=== PATIENT | female | born 1975 | race Caucasian/White ===

== ENCOUNTER 2019-08-09 03:55 | Emergency (ER) | payer MEDICAID ==
--- NOTE | 2019-08-09 04:11 | EDM.PDOC ---
ED HPI GENERAL MEDICAL PROBLEM - General Chief Complaint: General Stated Complaint: Laceration Time Seen by Provider: 08/09/19 04:00 Source of Information: Reports: Patient History Limitations: Reports: Intoxication - History of Present Illness INITIAL COMMENTS - FREE TEXT/NARRATIVE: She is brought to the emergency department via ambulance. She appears intoxicated and reports that she had 4 beers earlier in the evening. She reports that she tripped and fell down her steps at home earlier this morning. She is complaining of pain in the left shoulder and left wrist. She denies any loss of consciousness. No headache. She does complain of dizziness but states that has been present for about 3 weeks. No pain in the neck or back. Pain in the shoulder is more on the superior aspect. She is comfortable at rest but has pain with any attempted movement. Also has pain in the left wrist with any movement. No pain in the elbow. No pain in the right upper extremity. No pain in the hips or lower extremities. She denies chest pain or tightness. No abdominal pain. Positive nausea but this has been present for 3 weeks and is unchanged. No vomiting. No visual problems. She does have a laceration over the left eye. No numbness or tingling in the fingers or toes. - Related Data Allergies Allergy/AdvReac Type Severity Reaction Status Date / Time No Known Allergies Allergy Verified 08/09/19 03:57 Home Meds: Home Meds diphenhydrAMINE [Benadryl] 25 mg PO BID PRN 08/09/19 [History] ED ROS GENERAL - Review of Systems Review Of Systems: See Below Constitutional: Denies: Fever, Chills, Weakness, Diaphoresis HEENT: Denies: Ear Pain, Eye Pain, Sinus Problem, Throat Pain, Vision Change Respiratory: Denies: Shortness of Breath, Cough Cardiovascular: Reports: Lightheadedness. Denies: Chest Pain, Palpitations Endocrine: Denies: Fatigue GI/Abdominal: Denies: Abdominal Pain, Constipation, Diarrhea, Nausea, Vomiting : Reports: No Symptoms Musculoskeletal: Reports: Shoulder Pain, Hand Pain (left wrist). Denies: Neck Pain Skin: Reports: Wound Neurological: Reports: Dizziness. Denies: Confusion, Headache, Numbness Psychiatric: Denies: Anxiety, Depression Hematologic/Lymphatic: Denies: Anemia ED EXAM, GENERAL - Physical Exam Exam: See Below Exam Limited By: Intoxication General Appearance: Alert, WD/WN, No Apparent Distress Eye Exam: Bilateral Eye: EOMI, PERRL Ears: Normal External Exam, Normal Canal, Normal TMs Nose: Normal Inspection, No Blood Throat/Mouth: Normal Inspection, Normal Gums, Normal Oropharynx Head: Other (1 cm straight laceration in the lateral border of the left eyebrow. Mild surrounding swelling.Otherwise atraumatic.) Neck: No: Normal Inspection, Non-Tender, Full Range of Motion Respiratory/Chest: No: No Respiratory Distress, Lungs Clear, Normal Breath Sounds Cardiovascular: No: Regular Rate, Rhythm, No Murmur GI/Abdominal: No: Normal Bowel Sounds, Soft, Non-Tender, No Mass (Female) Exam: Deferred Rectal (Female) Exam: Deferred Back Exam: No: CVA Tenderness (L), Paraspinal Tenderness, Vertebral Tenderness Extremities: Other (left shoulder shows no swelling or deformity. Short vessels appear aspect over the a.c. joint. Minimal diffuse tenderness. No active movement secondary to pain. Full passive range of motion but she does complain of pain.Negative impingement. Left wrist: No swelling or deformity. No discoloration. Moderate tenderness over the distal radius and ulna. No point tenderness or palpable defect. Full passive range of motion with pain in extremes of both flexion and extension. 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 Left elbow is unremarkable. Right upper extremity is unremarkable. Lower extremities show no swelling, deformity, or tenderness.) Neurological: Alert, Oriented, CN II-XII Intact Psychiatric: Normal Affect, Normal Mood Skin Exam: Warm, Dry, Wound/Incision (1 cm laceration lateral aspect of the left eyebrow.) Course - Orders/Labs/Meds Orders: Active Orders 24 hr Category Date Time Status Head wo Cont [CT] Stat Exams 08/09/19 04:02 Ordered Shoulder Comp Lt [CR] Stat Exams 08/09/19 04:04 Ordered Wrist 2V Lt [CR] Stat Exams 08/09/19 04:03 Ordered - Radiology Interpretation Free Text/Narrative:: CT scan of the head is negative for skull fracture or intracranial bleed. views of the left shoulder indicates a minimally displaced fracture in the distal aspect of the clavicle No dislocation. 3 views of the left wrist show a nondisplaced fracture of the distal radius that does extend to the joint surface. - Re-Assessments/Exams Free Text/Narrative Re-Assessment/Exam: 08/09/19 05:15 The wound on the left eyebrow was cleansed with saline. The wound is closed with surgical glue without complication. Ortho-Glass volar splint is applied to the left wrist. Left arm is placed in a sling. She was given 60 mg of Toradol IM for pain. Departure - Departure Time of Disposition: 05:20 Disposition: Home, Self-Care 01 Condition: Good Clinical Impression: Closed fracture of left clavicle Distal radius fracture, left Qualifiers: Encounter type: initial encounter Fracture type: closed - Discharge Information *PRESCRIPTION DRUG MONITORING PROGRAM REVIEWED*: No *COPY OF PRESCRIPTION DRUG MONITORING REPORT IN PATIENT CHARLIE: No Instructions: Clavicle Fracture, [id number], Wrist Fracture Treated With Immobilization, [id number], Stitches, Lisa, or Adhesive Wound Closure, Easy -to-Read Forms: ED Department Discharge Additional Instructions: Keep the left arm in the sling as much as possible. Ice the the wrist and shoulder for 15 minutes 3-4 times daily. Naproxen 500 mg twice daily with food. Tylenol as needed for additional pain control. monitor of the eyebrow for signs of infection including increasing redness, swelling or drainage. Followup if this occurs. Followup with orthopedic surgery this week. Sepsis Event Note - Focused Exam Date Exam was Performed: 08/09/19 Time Exam was Performed: 04:25 - My Orders Last 24 Hours: My Active Orders 08/09/19 04:02 Head wo Cont [CT] Stat 08/09/19 04:03 Wrist 2V Lt [CR] Stat 08/09/19 04:04 Shoulder Comp Lt [CR] Stat - Assessment/Plan Last 24 Hours: My Active Orders 08/09/19 04:02 Head wo Cont [CT] Stat 08/09/19 04:03 Wrist 2V Lt [CR] Stat 08/09/19 04:04 Shoulder Comp Lt [CR] Stat
[2019-08-09] MEDS ORDERED: Ketorolac 60 MG/2 ML SDV IM ONE (04:46)
== END 2019-08-09 05:40 | disposition home or self-care (01) ==
LOC: LL.ED 03:55
DX: S42.032A Displaced fracture of lateral end of left clavicle, initial encounter for closed fracture (principal); S52.502A Unspecified fracture of the lower end of left radius, initial encounter for closed fracture; W10.9XXA Fall (on) (from) unspecified stairs and steps, initial encounter; Y92.009 Unspecified place in unspecified non-institutional (private) residence as the place of occurrence of the external cause
CPT/HCPCS: 12011; 29125; 70450; 73030-LT; 73110-LT; 96372; 99284; 99284-25; J1885